=== PATIENT | female | born 1930 | race Caucasian/White ===

== ENCOUNTER 2018-09-01 17:26 | Inpatient (IN) | payer MEDICARE, BC ==
[~2018-09-01] VITALS: Ht 157.5 cm; Wt 42.8 kg
--- NOTE | 2018-09-01 17:26 | NUR ---
PT BIB [facility] FROM [facility], STAFF STATED SHE WAS "OFF" AND "DIFFERENT, SOMETHING IS WRONG", PT STATES SHE FEELS FINE AND IS ALWAYS TIRED. 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 PT HAS NOT STARTED HER ANTIHYPERTENSIVES YET. [facility]. PT STATES SHE HAS NO OTHER HISTORY. PT PLACED ON MONITOR, VSS, BP SLIGHTLY ELEVATED. CALL LIGHT WITHIN REACH
--- NOTE | 2018-09-01 18:20 | NUR ---
SPOKE WITH ZOE FROM [facility], PT STATED SEVERAL TIMES TO RN & TILE LAYER DRAINAGE TODAY THAT SHE FEELS VERY DIZZY AND "OFF", NURSING STAFF SAID SHE SEEMED FATIGUED AND CLAMMY. DAUGHTER WAS BY TODAY AND STATED TO STAFF THAT SHE WAS CONCERNED AND THAT SHE WAS NOT BEING HERSELF. PT WAS IN ED YESTERDAY FOR BROKEN ARM AFTER FALL AND THEY DID AN US OF BLE AND FOUND BILAT DVT'S. PTS WAS ALSO HYPERTENSIVE AND ADDED AMLODIPINE IN ADDITION CARVEDILOL THAT PT ALREADY TAKES, BUT PT HAS NOT HAD HER FIRST DOSE YET. FACIALIST REQUESTING MED RECORDS FROM [facility] AND [facility] ED. UPDATED ON NEW INFORMATION
[2018-09-01 18:45] LABS: BASOPHILS # (AUTO) 0.01 x10^3/uL (0-0.1); BASOPHILS % (AUTO) 0 % (0-1); EOSINOPHILS # (AUTO) 0.05 x10^3/uL (0-0.4); EOSINOPHILS % (AUTO) 1 % (1-7); LYMPHOCYTES # (AUTO) 1.05 x10^3/uL (1-3.4); LYMPHOCYTES % (AUTO) 13 % (22-44); MD NO; MEAN CORPUSCULAR HEMOGLOBIN 30.8 pg (27.0-34.8); MEAN CORPUSCULAR HGB CONC 34.1 g/dL (32.4-35.8); MEAN CORPUSCULAR VOLUME 90.4 fL (80-100); MEAN PLATELET VOLUME 7.7 fL (7.4-10.4); MONOCYTES # (AUTO) 0.61 x10^3/uL (0.2-0.8); MONOCYTES % (AUTO) 8 % (2-9); NEUTROPHILS # (AUTO) 6.31 x10^3/uL (1.8-6.8); NEUTROPHILS % (AUTO) 79 % (42-75); PLATELET COUNT 252 x10^3/uL (130-400); RED BLOOD COUNT 3.68 x10^6/uL (3.82-5.3); RED CELL DISTRIBUTION WIDTH 15.9 % (9.6-15.2)
[2018-09-01 18:54] LABS: ANION GAP 6 mmol/L (5-15); CALCIUM 8.9 mg/dL (8.5-10.1); CHLORIDE 108 mmol/L (98-107); CREATININE 0.81 mg/dL (0.55-1.02)
--- NOTE | 2018-09-01 19:33 | NUR ---
PT TO CTA
--- NOTE | 2018-09-01 20:09 | NUR ---
PT STRAIGHT CATH AND PROTOCOL MAINTAINED, URINE SAMPLE TAKEN TO LAB
[2018-09-01 20:16] LABS: MICROSCOPIC AUTO
--- NOTE | 2018-09-01 20:16 | NUR ---
PT INCONTINENT OF URINE, PT CLEANED AND FULL LINEN CHANGE COMPLETED.
[2018-09-01 20:17] LABS: CULTURE INDICATED? YES
[2018-09-01] MEDS ORDERED: APIXABAN 5 MG TABLET PO SCH (21:00)
[2018-09-01] MEDS ORDERED: CEFTRIAXONE PMX 1GM/50ML 50 ML IV ONE (21:00)
[2018-09-01] MEDS ORDERED: CEFTRIAXONE PMX 1GM/50ML 50 ML ONE (21:13)
[2018-09-01] MEDS ORDERED: APIXABAN 5 MG TABLET ONE (21:14)
[2018-09-01] MEDS ORDERED: ENALAPRILAT 1.25 MG/ML, 2ML IV ONE (21:30)
[2018-09-01 22:33] VITALS: BP 142/99
[2018-09-01 22:45] VITALS: BP 142/99
[2018-09-01] MEDS ORDERED: OMNIPAQUE 350 MG/ML, 100ML BOTTLE ONE (22:52)
[2018-09-01] MEDS ORDERED: LIDODERM 5% PATCH TD PRN (23:30)
[2018-09-01] MEDS ORDERED: DOCUSATE 100 MG CAPSULE PO PRN (23:30)
[2018-09-01] MEDS ORDERED: DIPHENHYDRAMINE 25 MG CAPSULE PO PRN (23:30)
[2018-09-01] MEDS ORDERED: ONDANSETRON ODT 4 MG PO PRN (23:30)
[2018-09-01] MEDS ORDERED: ENALAPRILAT 1.25 MG/ML, 2ML IVPush PRN (23:30)
[2018-09-01] MEDS: APIXABAN MC SCH (23:45)
[2018-09-02 01:48] VITALS: BP 141/86
[2018-09-02 06:19] LABS: BASOPHILS # (AUTO) 0.03 x10^3/uL (0-0.1); BASOPHILS % (AUTO) 0 % (0-1); EOSINOPHILS # (AUTO) 0.06 x10^3/uL (0-0.4); EOSINOPHILS % (AUTO) 1 % (1-7); LYMPHOCYTES # (AUTO) 1.33 x10^3/uL (1-3.4); LYMPHOCYTES % (AUTO) 15 % (22-44); MD NO; MEAN CORPUSCULAR HEMOGLOBIN 31.3 pg (27.0-34.8); MEAN CORPUSCULAR HGB CONC 34.2 g/dL (32.4-35.8); MEAN CORPUSCULAR VOLUME 91.4 fL (80-100); MEAN PLATELET VOLUME 7.9 fL (7.4-10.4); MONOCYTES # (AUTO) 0.61 x10^3/uL (0.2-0.8); MONOCYTES % (AUTO) 7 % (2-9); NEUTROPHILS # (AUTO) 7.04 x10^3/uL (1.8-6.8); NEUTROPHILS % (AUTO) 78 % (42-75); PLATELET COUNT 251 x10^3/uL (130-400); RED BLOOD COUNT 3.64 x10^6/uL (3.82-5.3); RED CELL DISTRIBUTION WIDTH 16.4 % (9.6-15.2)
[2018-09-02 06:32] LABS: ANION GAP 8 mmol/L (5-15); CALCIUM 8.5 mg/dL (8.5-10.1); CHLORIDE 110 mmol/L (98-107)
[2018-09-02 07:35] VITALS: BP 139/83
[2018-09-02] MEDS: APIXABAN MC SCH (07:45)
[2018-09-02] MEDS ORDERED: [UNRECOGNIZED DRUG - REMARK] MC SCH (08:30)
[2018-09-02] MEDS: CEFTRIAXONE PMX 1GM/50ML 50 ML IV SCH ×2 (10:16→21:58)
[2018-09-02] MEDS: APIXABAN 5 MG TABLET PO SCH ×2 (10:16→21:59)
[2018-09-02 13:15] VITALS: BP 134/78
[2018-09-02] MEDS ORDERED: DEXT15DR5 OP (16:34)
[2018-09-02] MEDS ORDERED: FLUO5DRO5 OP (16:49)
[2018-09-02] MEDS ORDERED: MULT-658 PO (16:49)
[2018-09-02] MEDS ORDERED: TRAM50TA2 PO (16:49)
[2018-09-02] MEDS ORDERED: ASPERCREME 4% (16:49)
[2018-09-02] MEDS ORDERED: IRBE300T16 PO (16:49)
[2018-09-02] MEDS ORDERED: MEGE400O2 PO (16:49)
[2018-09-02] MEDS ORDERED: [UNRECOGNIZED DRUG - CODE] PO (16:49)
[2018-09-02] MEDS ORDERED: MEGE40TA PO (16:49)
[2018-09-02] MEDS ORDERED: FLUT12HF2 INH (16:49)
[2018-09-02] MEDS ORDERED: LATA7.5D OP (16:49)
[2018-09-02] MEDS ORDERED: SUCR1TAB PO (16:49)
[2018-09-02] MEDS ORDERED: ASPI81TA45 PO (16:49)
[2018-09-02] MEDS ORDERED: POTA10TA31 PO (16:49)
[2018-09-02] MEDS ORDERED: METH500T5 PO (16:49)
[2018-09-02] MEDS ORDERED: CARV12.5 PO (16:49)
[2018-09-02] MEDS ORDERED: DULO30CA2 PO (16:49)
[2018-09-02 19:31] VITALS: BP 143/97
[2018-09-03 03:58] VITALS: BP 151/98
[2018-09-03 05:59] LABS: ANION GAP 8 mmol/L (5-15); CALCIUM 8.3 mg/dL (8.5-10.1); CHLORIDE 108 mmol/L (98-107); CREATININE 0.54 mg/dL (0.55-1.02)
[2018-09-03 06:00] LABS: BASOPHILS # (AUTO) 0.02 x10^3/uL (0-0.1); BASOPHILS % (AUTO) 0 % (0-1); EOSINOPHILS # (AUTO) 0.06 x10^3/uL (0-0.4); EOSINOPHILS % (AUTO) 1 % (1-7); LYMPHOCYTES # (AUTO) 1.57 x10^3/uL (1-3.4); LYMPHOCYTES % (AUTO) 14 % (22-44); MD NO; MEAN CORPUSCULAR HEMOGLOBIN 30.5 pg (27.0-34.8); MEAN CORPUSCULAR HGB CONC 33.6 g/dL (32.4-35.8); MEAN CORPUSCULAR VOLUME 90.9 fL (80-100); MEAN PLATELET VOLUME 7.8 fL (7.4-10.4); MONOCYTES % (AUTO) 7 % (2-9); NEUTROPHILS # (AUTO) 9.07 x10^3/uL (1.8-6.8); NEUTROPHILS % (AUTO) 79 % (42-75); PLATELET COUNT 251 x10^3/uL (130-400); RED BLOOD COUNT 3.71 x10^6/uL (3.82-5.3); RED CELL DISTRIBUTION WIDTH 16.4 % (9.6-15.2)
[2018-09-03 08:15] VITALS: BP 132/89
[2018-09-03] MEDS: SALMETEROL INH SCH ×2 (09:00→21:00)
[2018-09-03] MEDS: FLUOROMETHOLONE OP SCH (09:00)
[2018-09-03] MEDS: FLUTICASONE INH SCH ×2 (09:00→21:00)
[2018-09-03] MEDS ORDERED: MEGESTROL 40MG TABLET PO SCH (09:00)
[2018-09-03] MEDS: PSYLLIUM PACKET PO SCH (09:30)
[2018-09-03] MEDS: ARTIFICIAL TEARS 15 DROP/ML BOTTLE OP SCH (09:30)
[2018-09-03] MEDS: SUCRALFATE 1 GM TABLET PO SCH ×2 (10:33→18:24)
[2018-09-03] MEDS: APIXABAN 5 MG TABLET PO SCH ×2 (10:34→21:44)
[2018-09-03] MEDS: MULTIVITAMIN 1 TABLET PO SCH (10:34)
[2018-09-03] MEDS: CARVEDILOL 12.5 MG TABLET PO SCH ×2 (10:34→21:43)
[2018-09-03] MEDS: PYRIDOSTIGMINE 60 MG TABLET PO SCH ×3 (10:34→21:43)
[2018-09-03] MEDS: CEFTRIAXONE PMX 1GM/50ML 50 ML IV SCH ×2 (10:35→21:43)
[2018-09-03] MEDS: MEGESTROL ORAL.SUSP 40 MG/ML PO SCH (10:35)
[2018-09-03 12:38] VITALS: BP 118/84
[2018-09-03] MEDS: ALBUTEROL SULFATE 2.5MG/0.5ML NPPB SCH ×2 (13:30→22:10)
[2018-09-03] MEDS: BUDESONIDE 0.5 MG/2 ML INHA NPPB SCH ×2 (13:30→22:10)
[2018-09-03] MEDS: LATANOPROST OPHTH 0.005%, 2.5ML OP SCH (21:00)
[2018-09-03] MEDS: DULOXETINE 30 MG CAPSULE.DR PO SCH (21:43)
[2018-09-03 21:47] VITALS: BP 138/94
[2018-09-04 00:22] VITALS: BP 136/98
[2018-09-04] MEDS: ALBUTEROL SULFATE 2.5MG/0.5ML NPPB SCH ×4 (03:30→21:45)
[2018-09-04 07:50] VITALS: BP 123/79
[2018-09-04] MEDS: FLUOROMETHOLONE OP SCH (09:00)
[2018-09-04] MEDS: FLUTICASONE INH SCH ×2 (09:00→21:00)
[2018-09-04] MEDS: SALMETEROL INH SCH ×2 (09:00→21:00)
[2018-09-04] MEDS: ARTIFICIAL TEARS 15 DROP/ML BOTTLE OP SCH (09:08)
[2018-09-04] MEDS: PSYLLIUM PACKET PO SCH (09:08)
[2018-09-04] MEDS: CEFTRIAXONE PMX 1GM/50ML 50 ML IV SCH (09:08)
[2018-09-04] MEDS: CARVEDILOL 12.5 MG TABLET PO SCH ×2 (09:09→21:21)
[2018-09-04] MEDS: PYRIDOSTIGMINE 60 MG TABLET PO SCH ×3 (09:09→21:21)
[2018-09-04] MEDS: SUCRALFATE 1 GM TABLET PO SCH ×3 (09:09→17:09)
[2018-09-04] MEDS: MEGESTROL ORAL.SUSP 40 MG/ML PO SCH (09:09)
[2018-09-04] MEDS: APIXABAN 5 MG TABLET PO SCH ×2 (09:09→21:21)
[2018-09-04] MEDS: MULTIVITAMIN 1 TABLET PO SCH (09:10)
[2018-09-04] MEDS ORDERED: FERROUS SULFATE 325 MG TABLET PO SCH (09:30)
[2018-09-04] MEDS: BUDESONIDE 0.5 MG/2 ML INHA NPPB SCH ×2 (09:45→21:45)
[2018-09-04 13:49] VITALS: BP 108/67
[2018-09-04] MEDS ORDERED: APIX5TAB PO (14:35)
[2018-09-04] MEDS ORDERED: FERR-51 PO (14:35)
[2018-09-04 19:02] VITALS: BP 117/78
[2018-09-04] MEDS: DULOXETINE 30 MG CAPSULE.DR PO SCH (21:21)
[2018-09-04] MEDS: LATANOPROST OPHTH 0.005%, 2.5ML OP SCH (21:22)
[2018-09-05] MEDS: CEFTRIAXONE PMX 1GM/50ML 50 ML IV SCH ×2 (00:01→09:13)
[2018-09-05] MEDS: ALBUTEROL SULFATE 2.5MG/0.5ML NPPB SCH ×3 (01:30→14:15)
[2018-09-05 02:55] VITALS: BP 124/83
[2018-09-05 07:58] VITALS: BP 140/87
[2018-09-05 08:18] LABS: CALCIUM 8.1 mg/dL (8.5-10.1); CHLORIDE 107 mmol/L (98-107)
[2018-09-05 08:22] LABS: ANION GAP 6 mmol/L (5-15)
[2018-09-05] MEDS: SALMETEROL INH SCH (09:00)
[2018-09-05] MEDS: FLUTICASONE INH SCH (09:00)
[2018-09-05] MEDS: ARTIFICIAL TEARS 15 DROP/ML BOTTLE OP SCH (09:00)
[2018-09-05] MEDS ORDERED: POTASSIUM CHLORIDE 20 MEQ TAB.ER.PRT PO ONE (09:00)
[2018-09-05] MEDS: FLUOROMETHOLONE OP SCH (09:00)
[2018-09-05] MEDS: APIXABAN 5 MG TABLET PO SCH (09:12)
[2018-09-05] MEDS: PYRIDOSTIGMINE 60 MG TABLET PO SCH (09:12)
[2018-09-05] MEDS: SUCRALFATE 1 GM TABLET PO SCH ×2 (09:12→12:24)
[2018-09-05] MEDS: PSYLLIUM PACKET PO SCH (09:12)
[2018-09-05] MEDS: MULTIVITAMIN 1 TABLET PO SCH (09:12)
[2018-09-05] MEDS: CARVEDILOL 12.5 MG TABLET PO SCH (09:13)
[2018-09-05] MEDS: BUDESONIDE 0.5 MG/2 ML INHA NPPB SCH (10:10)
[2018-09-05 13:26] VITALS: BP 144/89
[2018-09-08] MEDS ORDERED: [UNRECOGNIZED DRUG - REMARK] MC SCH (09:00)
== END 2018-09-05 16:50 | DRG 175 ==
LOC: ED 21:00 → 4EST 21:09 → ED 21:13
PROVIDERS: ADMIT Family Medicine; ATTEND Family Medicine
PROC: 0T9B70Z Drainage of Bladder with Drainage Device, Via Natural or Artificial Opening (ICD-10-PCS; principal; 2018-09-01)
DX: I26.99 Other pulmonary embolism without acute cor pulmonale (principal); G92 Toxic encephalopathy; S42.201A Unspecified fracture of upper end of right humerus, initial encounter for closed fracture; N39.0 Urinary tract infection, site not specified; D50.9 Iron deficiency anemia, unspecified; E87.6 Hypokalemia; G70.00 Myasthenia gravis without (acute) exacerbation; I10 Essential (primary) hypertension; I16.0 Hypertensive urgency; L30.9 Dermatitis, unspecified; S20.329A Blister (nonthermal) of unspecified front wall of thorax, initial encounter; Z66 Do not resuscitate; R91.8 Other nonspecific abnormal finding of lung field; W18.30XA Fall on same level, unspecified, initial encounter; Y93.89 Activity, other specified; Y92.89 Other specified places as the place of occurrence of the external cause; Y99.8 Other external cause status; Z83.3 Family history of diabetes mellitus; Z86.718 Personal history of other venous thrombosis and embolism; Z90.49 Acquired absence of other specified parts of digestive tract; Z88.5 Allergy status to narcotic agent; Z88.8 Allergy status to other drugs, medicaments and biological substances; Z87.891 Personal history of nicotine dependence
CPT/HCPCS: 36415; 71275; 80048; 81001; 82728; 83540; 83550; 83735; 84466; 85025; 87077; 87086; 87186; 93005; 94640; 96365; G0378; J0696; J7611; J7626; Q9967